=== PATIENT | male | born 1935 | race Two or more races ===

== ENCOUNTER 2017-07-06 07:48 | Outpatient (CLI) | payer OTHER | END 2017-07-06 10:30 | disposition home or self-care (01) | LOC: SONOGRAMA 07:48 | DX: N40.0 Benign prostatic hyperplasia without lower urinary tract symptoms (principal); R31.9 Hematuria, unspecified ==

== ENCOUNTER 2023-03-21 09:20 | Emergency (ER) | payer OTHER ==
[~2023-03-21] VITALS: Ht 165.1 cm; Wt 76.2 kg
[2023-03-21] MEDS ORDERED: SIMVASTATIN20 MG PO (09:38)
[2023-03-21] MEDS ORDERED: PREDNISONE10 M2 PO (09:38)
[2023-03-21 10:26] LABS: HEMATOCRIT 38.6 % (39.0-48.0); HEMOGLOBIN 13.2 g/dL (13-16.00); MEAN CELL VOLUME 86.8 fL (80.0-100.00); MEAN CORPUSCULAR HEMOGLOBIN 29.7 pg (27.00-32.0); MEAN CORPUSCULAR HGB CONC 34.2 g/dl (32.0-36.0); PLATELET COUNT 239 K/uL (150-450); RED BLOOD COUNT 4.45 M/uL (4.00-6.00); RED CELL DISTRIBUTION WIDTH 15.2 % (11.5-14.5)
[2023-03-21 10:59] LABS: CALCIUM 9.3 mg/dL (8.5-10.1); CREATININE SERUM 2.07 mg/dL (0.70-1.30); GFR 30.6; POTASSIUM 4.2 mEq/L (3.5-5.1)
[2023-03-21 11:52] LABS: ABG PH 7.432 (7.35-7.45); ABG pCO2 32.8 mmHg (35-45); BASE EXCESS -1.9 mmol/l; BICARBONATE 21.4 mmol/l (23-25); SaO2 96.2 %
== END 2023-03-21 12:09 | disposition home or self-care (01) ==
LOC: ER 09:21
PROVIDERS: General Practice
DX: J44.1 Chronic obstructive pulmonary disease with (acute) exacerbation (principal); J45.901 Unspecified asthma with (acute) exacerbation; E03.9 Hypothyroidism, unspecified; I10 Essential (primary) hypertension
CPT/HCPCS: 36415; 71046; 82803; 94640; 96365; 99285; J2930; J3475

== ENCOUNTER 2023-03-30 09:06 | Inpatient (IN) | payer OTHER ==
[~2023-03-30] VITALS: Ht 165.1 cm; Wt 76.2 kg
[~2023-03-30 09:06] MED LIST: PREDNISONE10 M2 PO; SIMVASTATIN20 MG PO
[2023-03-30 11:10] LABS: HEMATOCRIT 39.7 % (39.0-48.0); HEMOGLOBIN 13.4 g/dL (13-16.00); MEAN CELL VOLUME 86.6 fL (80.0-100.00); MEAN CORPUSCULAR HEMOGLOBIN 29.3 pg (27.00-32.0); MEAN CORPUSCULAR HGB CONC 33.9 g/dl (32.0-36.0); PLATELET COUNT 249 K/uL (150-450); RED BLOOD COUNT 4.58 M/uL (4.00-6.00); RED CELL DISTRIBUTION WIDTH 15.3 % (11.5-14.5)
[2023-03-30 11:30] LABS: ALBUMIN 3.5 gm/dL (3.4-5.0); BILIRUBIN TOTAL 0.55 mg/dL (0.3-1.2); CALCIUM 9.1 mg/dL (8.5-10.1); CREATININE SERUM 1.99 mg/dL (0.70-1.30); GFR 32.02; GLOBULINA 3.3 G/DL (2.4-3.5); POTASSIUM 4.29 mEq/L (3.5-5.1); TOTAL PROTEIN 6.8 gm/dL (6.4-8.2)
[2023-03-30 11:38] LABS: ABG PH 7.425 (7.35-7.45); ABG PO2 86.2 mmHg (80-100); ABG pCO2 31.6 mmHg (35-45); BICARBONATE 20.2 mmol/l (23-25); SaO2 96.7 %; Tco2 21.2 mmol/l
[2023-03-30 11:39] LABS: allen test SATISFACTORY; o2 21 %; puncture site RADIAL RIGHT
[2023-03-31 07:51] LABS: HEMATOCRIT 37.5 % (39.0-48.0); HEMOGLOBIN 12.2 g/dL (13-16.00); MEAN CELL VOLUME 87.9 fL (80.0-100.00); MEAN CORPUSCULAR HEMOGLOBIN 28.6 pg (27.00-32.0); MEAN CORPUSCULAR HGB CONC 32.5 g/dl (32.0-36.0); PLATELET COUNT 223 K/uL (150-450); RED BLOOD COUNT 4.27 M/uL (4.00-6.00)
[2023-03-31 08:34] LABS: ALBUMIN 3.2 gm/dL (3.4-5.0); BILIRUBIN TOTAL 0.46 mg/dL (0.3-1.2); CALCIUM 8.9 mg/dL (8.5-10.1); CREATININE SERUM 2.25 mg/dL (0.70-1.30); GFR 27.79; GLOBULINA 2.6 G/DL (2.4-3.5); POTASSIUM 5.59 mEq/L (3.5-5.1); TOTAL PROTEIN 5.8 gm/dL (6.4-8.2)
[2023-03-31 08:39] LABS: C-REACTIVE PROTEIN 0.48 MG/DL (0.00-0.29)
[2023-03-31 08:40] LABS: TSH 0.037 uIU/mL (0.358-3.74)
[2023-04-01 08:52] LABS: HEMATOCRIT 38.4 % (39.0-48.0); HEMOGLOBIN 12.7 g/dL (13-16.00); PLATELET COUNT 252 K/uL (150-450); RED BLOOD COUNT 4.36 M/uL (4.00-6.00); RED CELL DISTRIBUTION WIDTH 14.9 % (11.5-14.5)
[2023-04-01 09:27] LABS: CALCIUM 8.6 mg/dL (8.5-10.1); GFR 31.84; MAGNESIUM 2.1 mg/dL (1.8-2.4); PHOSPHOROUS 3.3 mg/dL (2.5-4.9); POTASSIUM 4.3 mEq/L (3.5-5.1)
[2023-04-02 13:43] LABS: HEMOGLOBIN 13.6 g/dL (13-16.00); MEAN CELL VOLUME 88.4 fL (80.0-100.00); MEAN CORPUSCULAR HEMOGLOBIN 28.6 pg (27.00-32.0); MEAN CORPUSCULAR HGB CONC 32.4 g/dl (32.0-36.0); PLATELET COUNT 282 K/uL (150-450); RED BLOOD COUNT 4.75 M/uL (4.00-6.00); RED CELL DISTRIBUTION WIDTH 15.6 % (11.5-14.5)
[2023-04-02 14:16] LABS: CALCIUM 8.8 mg/dL (8.5-10.1); CREATININE SERUM 1.98 mg/dL (0.70-1.30); GFR 32.21; MAGNESIUM 2.2 mg/dL (1.8-2.4); PHOSPHOROUS 2.3 mg/dL (2.5-4.9); POTASSIUM 4.03 mEq/L (3.5-5.1)
[2023-04-03 11:42] LABS: HEMATOCRIT 41.9 % (39.0-48.0); HEMOGLOBIN 13.4 g/dL (13-16.00); MEAN CELL VOLUME 89.6 fL (80.0-100.00); MEAN CORPUSCULAR HEMOGLOBIN 28.6 pg (27.00-32.0); MEAN CORPUSCULAR HGB CONC 31.9 g/dl (32.0-36.0); PLATELET COUNT 247 K/uL (150-450); RED BLOOD COUNT 4.68 M/uL (4.00-6.00); RED CELL DISTRIBUTION WIDTH 15.3 % (11.5-14.5)
[2023-04-03 12:03] LABS: CALCIUM 8.5 mg/dL (8.5-10.1); CREATININE SERUM 1.94 mg/dL (0.70-1.30); GFR 32.98; MAGNESIUM 2.3 mg/dL (1.8-2.4); PHOSPHOROUS 3.1 mg/dL (2.5-4.9); POTASSIUM 4.02 mEq/L (3.5-5.1)
[2023-04-05 04:53] LABS: CREATININE SERUM 1.97 mg/dL (0.70-1.30); GFR 32.4; HEMATOCRIT 34.2 % (39.0-48.0); HEMOGLOBIN 11.6 g/dL (13-16.00); MAGNESIUM 2.1 mg/dL (1.8-2.4); MEAN CELL VOLUME 86.7 fL (80.0-100.00); MEAN CORPUSCULAR HEMOGLOBIN 29.3 pg (27.00-32.0); MEAN CORPUSCULAR HGB CONC 33.8 g/dl (32.0-36.0); PHOSPHOROUS 2.5 mg/dL (2.5-4.9); PLATELET COUNT 195 K/uL (150-450); POTASSIUM 5.05 mEq/L (3.5-5.1); RED BLOOD COUNT 3.95 M/uL (4.00-6.00)
[2023-04-06] MEDS ORDERED: LEVOTHYROXINE88 MCG PO (12:50)
[2023-04-06] MEDS ORDERED: HYDRODIURIL12.5 MG PO (12:50)
[2023-04-06] MEDS ORDERED: SIMVASTATIN20 MG PO (12:50)
[2023-04-06] MEDS ORDERED: ATACAND16 MG PO (12:50)
[2023-04-06] MEDS ORDERED: prednisone PO (12:50)
== END 2023-04-06 15:04 | disposition home or self-care (01) | DRG 192 ==
LOC: ER 09:06 → MEDI 15:21 → SEC-K 15:21 → MEDI 16:16
PROVIDERS: General Practice; ADMIT Internal Medicine Geriatric Medicine; ATTEND Internal Medicine Geriatric Medicine
PROC: BW24ZZZ Computerized Tomography (CT Scan) of Chest and Abdomen (ICD-10-PCS; principal; 2023-03-30)
PROC: B24BZZZ Ultrasonography of Heart with Aorta (ICD-10-PCS; 2023-04-01)
DX: J44.1 Chronic obstructive pulmonary disease with (acute) exacerbation (principal); J20.9 Acute bronchitis, unspecified; I12.9 Hypertensive chronic kidney disease with stage 1 through stage 4 chronic kidney disease, or unspecified chronic kidney disease; E03.9 Hypothyroidism, unspecified; N18.30 Chronic kidney disease, stage 3 unspecified; Z20.822 Contact with and (suspected) exposure to COVID-19

== ENCOUNTER 2024-06-02 22:40 | Inpatient (IN) | payer OTHER ==
[~2024-06-02] VITALS: Ht 167.6 cm; Wt 81.6 kg
[~2024-06-02 22:40] MED LIST changes: +ATACAND16 MG PO; +HYDRODIURIL12.5 MG PO; +LEVOTHYROXINE88 MCG PO; +prednisone PO
[2024-06-03] MEDS ORDERED: IPRATROPIUM/ALBUTEROL SULFATE 3 ML AMPUL.NEB IH SCH (01:51)
[2024-06-03] MEDS ORDERED: METHYLPREDNISOLONE SOD SUCC 125 MG VIAL IV STA (01:52)
[2024-06-03] MEDS ORDERED: FUROsemide 40 MG TABLET PO STA (02:08)
[2024-06-03] MEDS ORDERED: KETOROLAC TROMETHAMINE 30 MG VIAL IV STA (02:37)
[2024-06-03 02:58] LABS: HEMATOCRIT 39.7 % (39.0-48.0); HEMOGLOBIN 12.9 g/dL (13-16.00); MEAN CELL VOLUME 88.4 fL (80.0-100.00); MEAN CORPUSCULAR HEMOGLOBIN 28.7 pg (27.00-32.0); MEAN CORPUSCULAR HGB CONC 32.5 g/dl (32.0-36.0); PLATELET COUNT 229 K/uL (150-450); RED BLOOD COUNT 4.49 M/uL (4.00-6.00); RED CELL DISTRIBUTION WIDTH 14.6 % (11.5-14.5)
[2024-06-03 03:00] LABS: ERYTHROCYTE SEDIMENTATION RATE 8 mm/hr
[2024-06-03 03:23] LABS: ALBUMIN 3.6 gm/dL (3.4-5.0); BILIRUBIN TOTAL 0.73 mg/dL (0.3-1.2); GFR 26.57; GLOBULINA 2.7 G/DL (2.4-3.5); POTASSIUM 4.29 mEq/L (3.5-5.1); TOTAL PROTEIN 6.3 gm/dL (6.4-8.2)
[2024-06-03 03:28] LABS: CREATININE SERUM 2.33 mg/dL (0.70-1.30)
[2024-06-03 06:03] LABS: ABG PH 7.468 (7.35-7.45); ABG pCO2 33.1 mmHg (35-45)
[2024-06-03 06:04] LABS: BASE EXCESS 0.5 mmol/l; BICARBONATE 23.4 mmol/l (23-25); SaO2 97.2 %; Tco2 24.4 mmol/l; allen test SATISFACTORY; o2 21 %; puncture site RADIAL LEFT
[2024-06-03 08:20] LABS: URINE APPEARANCE Clear; URINE BILIRRUBIN Negative (NEGATIVE); URINE BLOOD Negative; URINE COLOR Yellow; URINE GLUCOSE Negative (NEGATIVE); URINE KETONE Negative (NEGATIVE); URINE LEUKOCYTE Negative; URINE NITRATE Negative; URINE PROTEIN Negative (NEGATIVE); URINE UROBILINOGEN 0.2 E.U./dl
[2024-06-03 08:24] LABS: URINE BACTERIA 8.5 uL (0.0-1933); URINE EPITHELIAL CELLS 1.5 uL (0.0-38.8)
[2024-06-03 09:22] LABS: URINE CAST 0.73 uL (0.0-1.40); URINE RBC 0.4 uL (0.0-20.8); URINE WBC 1.1 uL (0.0-23.2)
[2024-06-03] MEDS ORDERED: 0.9 % SODIUM CHLORIDE 1,000 ML IV SCH (10:00)
[2024-06-03] MEDS ORDERED: CEFTRIAXONE SODIUM 1,000 MG VIAL IV SCH (10:03)
[2024-06-03] MEDS ORDERED: METHYLPREDNISOLONE SOD SUCC 40 MG VIAL IV SCH (10:03)
[2024-06-03] MEDS ORDERED: DOXYCYCLINE HYCLATE 100MG IV SCH (10:03)
[2024-06-03] MEDS ORDERED: FAMOtidine 20 MG TABLET PO SCH (10:05)
[2024-06-03] MEDS ORDERED: HYDROCHLOROTHIAZIDE 12.5 MG CAPSULE PO SCH (10:11)
[2024-06-03] MEDS ORDERED: ENOXAPARIN SODIUM 30 MG/0.3 ML SYRINGE SUBCUTANEO SCH (10:12)
[2024-06-03] MEDS ORDERED: CANDESARTAN CILEXETIL 16 MG TABLET PO SCH (10:13)
[2024-06-03] MEDS ORDERED: BUDESONIDE 0.25 MG/2 ML AMPUL.NEB IH SCH (10:14)
[2024-06-03] MEDS ORDERED: hydrALAZINE HCL 20 MG VIAL IV PRN (10:15)
[2024-06-03] MEDS ORDERED: ALBUTEROL SULFATE 3 ML/2.5 MG AMPUL.NEB IH SCH (12:00)
[2024-06-03] MEDS ORDERED: BENZONATATE 100 MG CAPSULE PO SCH (13:00)
[2024-06-03 15:00] VITALS: BP 144/73; O2SAT 100
[2024-06-03] MEDS ORDERED: SIMVASTATIN 20 MG TABLET PO SCH (17:00)
[2024-06-03] MEDS ORDERED: LINEZOLID IN DEXTROSE 5% 300 ML IV SCH (21:00)
[2024-06-03] MEDS ORDERED: MONTELUKAST SODIUM 10 MG TABLET PO SCH (21:00)
[2024-06-03] MEDS ORDERED: POLYETHYLENE GLYCOL 3350 17 GM BLIST.PACK PO SCH (21:00)
[2024-06-04 02:45] VITALS: BP 150/74; O2SAT 99
[2024-06-04] MEDS ORDERED: LEVOTHYROXINE SODIUM 100 MCG TABLET PO SCH (06:00)
[2024-06-04 08:03] LABS: HEMATOCRIT 35.8 % (39.0-48.0); MEAN CELL VOLUME 87.2 fL (80.0-100.00); MEAN CORPUSCULAR HEMOGLOBIN 29.3 pg (27.00-32.0); MEAN CORPUSCULAR HGB CONC 33.6 g/dl (32.0-36.0); PLATELET COUNT 176 K/uL (150-450); RED BLOOD COUNT 4.11 M/uL (4.00-6.00)
[2024-06-04 08:49] LABS: ERYTHROCYTE SEDIMENTATION RATE 46 mm/hr
[2024-06-04 09:07] LABS: BILIRUBIN TOTAL 0.46 mg/dL (0.3-1.2); C-REACTIVE PROTEIN 17.3 MG/DL (0.00-0.29); CREATININE SERUM 2.34 mg/dL (0.70-1.30); GFR 26.44; GLOBULINA 2.7 G/DL (2.4-3.5); MAGNESIUM 2.2 mg/dL (1.8-2.4); PHOSPHOROUS 4.2 mg/dL (2.5-4.9); POTASSIUM 4.78 mEq/L (3.5-5.1); TOTAL PROTEIN 5.7 gm/dL (6.4-8.2); TSH 0.116 uIU/mL (0.358-3.74)
[2024-06-04 10:05] VITALS: BP 137/79; O2SAT 96
[2024-06-04 19:36] VITALS: BP 190/76
[2024-06-05 01:49] VITALS: BP 151/58; O2SAT 97
[2024-06-05 08:00] VITALS: BP 151/82; O2SAT 96
[2024-06-05] MEDS ORDERED: METHYLPREDNISOLONE SOD SUCC 40 MG VIAL IV SCH (09:00)
[2024-06-05 19:12] VITALS: BP 151/86
[2024-06-06 01:15] VITALS: BP 119/68; O2SAT 97
[2024-06-06 09:19] VITALS: BP 140/64; O2SAT 98
[2024-06-06 13:00] LABS: HEMATOCRIT 36.6 % (39.0-48.0); HEMOGLOBIN 12.1 g/dL (13-16.00); MEAN CELL VOLUME 87.7 fL (80.0-100.00); MEAN CORPUSCULAR HEMOGLOBIN 29.1 pg (27.00-32.0); MEAN CORPUSCULAR HGB CONC 33.1 g/dl (32.0-36.0); PLATELET COUNT 241 K/uL (150-450); RED BLOOD COUNT 4.17 M/uL (4.00-6.00); RED CELL DISTRIBUTION WIDTH 14.7 % (11.5-14.5)
[2024-06-06 13:34] LABS: CALCIUM 8.5 mg/dL (8.5-10.1); CREATININE SERUM 2.15 mg/dL (0.70-1.30); GFR 29.15; MAGNESIUM 2.1 mg/dL (1.8-2.4); PHOSPHOROUS 3.7 mg/dL (2.5-4.9); POTASSIUM 5.04 mEq/L (3.5-5.1)
[2024-06-06 13:35] LABS: C-REACTIVE PROTEIN 3.42 MG/DL (0.00-0.29)
[2024-06-06 18:24] VITALS: BP 146/84
[2024-06-07 01:58] VITALS: BP 160/51; O2SAT 95
[2024-06-07 08:05] VITALS: BP 148/69; O2SAT 98
[2024-06-07] MEDS ORDERED: PREDNISONE 10 MG TABLET PO SCH (09:00)
[2024-06-07] MEDS ORDERED: LACTOBACILLUS ACIDOPHILUS 1 CAP CAP PO SCH (17:00)
[2024-06-07 17:54] VITALS: BP 109/57
[2024-06-08 02:47] VITALS: BP 155/71; O2SAT 97
[2024-06-08 08:22] VITALS: BP 156/84; O2SAT 97
[2024-06-08 11:57] LABS: HEMOGLOBIN 11.5 g/dL (13-16.00); MEAN CELL VOLUME 88.4 fL (80.0-100.00); MEAN CORPUSCULAR HEMOGLOBIN 29.1 pg (27.00-32.0); RED BLOOD COUNT 3.96 M/uL (4.00-6.00); RED CELL DISTRIBUTION WIDTH 14.6 % (11.5-14.5)
[2024-06-08 12:06] LABS: PLATELET COUNT 130 K/uL (150-450)
[2024-06-08 20:29] VITALS: BP 148/93
[2024-06-09 02:56] VITALS: BP 144/80; O2SAT 97
[2024-06-09 06:25] LABS: HEMATOCRIT 35.2 % (39.0-48.0); MEAN CELL VOLUME 85.4 fL (80.0-100.00); MEAN CORPUSCULAR HEMOGLOBIN 29.2 pg (27.00-32.0); MEAN CORPUSCULAR HGB CONC 34.2 g/dl (32.0-36.0); PLATELET COUNT 168 K/uL (150-450); RED BLOOD COUNT 4.12 M/uL (4.00-6.00); RED CELL DISTRIBUTION WIDTH 14.4 % (11.5-14.5)
[2024-06-09] MEDS ORDERED: CHOLESTYRAMINE/ASPARTAME LIGHT 4 G/PKT PACKET PO SCH (09:00)
[2024-06-09 10:52] VITALS: BP 176/66; O2SAT 96
[2024-06-09] MEDS ORDERED: LINEZOLID600 MG PO (13:36)
[2024-06-10 00:08] LABS: GIARDIA LAMBLIA EIA Negative (Negative)
== END 2024-06-09 15:26 | disposition home or self-care (01) | DRG 603 ==
LOC: ER 22:42 → SEC-K 06-03 10:21 → MEDJ 06-03 10:21
PROVIDERS: Internal Medicine Infectious Disease; ADMIT Internal Medicine Geriatric Medicine; ATTEND Internal Medicine Geriatric Medicine
PROC: 02HV33Z Insertion of Infusion Device into Superior Vena Cava, Percutaneous Approach (ICD-10-PCS; principal; 2024-06-03)
DX: L03.113 Cellulitis of right upper limb (principal); A04.72 Enterocolitis due to Clostridium difficile, not specified as recurrent; I10 Essential (primary) hypertension; J44.9 Chronic obstructive pulmonary disease, unspecified; E03.9 Hypothyroidism, unspecified; I12.9 Hypertensive chronic kidney disease with stage 1 through stage 4 chronic kidney disease, or unspecified chronic kidney disease; N18.30 Chronic kidney disease, stage 3 unspecified

== ENCOUNTER 2024-08-09 11:35 | Inpatient (IN) | payer OTHER ==
[~2024-08-09] VITALS: Ht 177.8 cm; Wt 90.7 kg
[2024-08-09] VITALS (8 sets, daily range): BP systolic 143–200; BP diastolic 72–101; O2SAT 99–100
[~2024-08-09 11:35] MED LIST changes: +ALBUTEROL2.5 MG/3 M IH; +ALLERGY RELIEF10 MG; +ALLERGY RELIEF10 MG PO; +AMOX-CLAV 875-1 EACH PO; +ANTIFUNGAL113 GM TOP; +ATACAND HCT 161 EACH; +ATACAND HCT 161 EACH PO; +ATACAND32 MG; +ATACAND32 MG PO; +BENZONATATE100 MG; +BENZONATATE100 MG PO; +BENZONATATE200 M1 PO; +BUDEO.25 IH; +BUDESONIDE0.5 MG/2 M IH; +CANDESARTAN CIL16 MG; +CANDESARTAN-HC1 EACH; +CANDESARTAN-HC1 EACH PO; +CLINDAMYCIN HC300 MG PO; +CLOTRIMAZOLE15 GM TOP; +CLOTRIMAZOLE45 G1 TOP; +FAMOTIDINE20 MG PO; +HYDROCHLOROTH12.5 M1 PO; +HYDROCODONE-CH115 ML PO; +INTESTINEX680 M1 PO; +IPRATROPIU0.2 MG/1 M IH; +LEVALBUTER0.31 MG/3 IH; +LEVALBUTEROL TA15 GM IH; +LEVOTHYROXINE112 MCG PO; +LEVOTHYROXINE125 MCG PO; +LINEZOLID600 MG PO; +LORATADINE10 MG; +LORATADINE10 MG PO; +MEDROLPACK PO; +MILLIPRED5 MG; +MONTELUKAST SOD10 MG; +MONTELUKAST SOD10 MG PO; +MONTELUKAST SODI4 M1; +MUCINEX DM ER1 EACH PO; +MUCINEX600 MG PO; +OMEPRAZOLE20 M1 PO; +PANTOPRAZOLE SO40 MG PO; +PREDNISONE 5MG PO; +PREDNISONE10 M2; +PREDNISONE10 MG PO; +PREDNISONE20 M1; +PRELONE15 MG/5 ML PO; +PROAIR RESPICL90 MCG; +PROMETHAZINE W118 ML PO; +PROTONIX40 MG PO; +SIMVASTATIN5 MG; +SINGULAIR10 MG PO; +SYMBICORT 16010.2 GM; +SYMBICORT 16010.2 GM IH; +SYNTHROID100 MCG PO; +SYNTHROID50 MCG; +SYNTHROID50 MCG PO; +SYNTHROID88 MCG; +TESSALON PERLE100 MG PO; +TRAMADOL PO; +TRELEGY ELLIPT1 EAC1; +TRELEGY ELLIPT1 EAC1 IN; +TRELEGY ELLIPT1 EACH; +TUSSIN DM LIQU118 ML PO; +Tessalon Perles PO; +XOPENEX HFA15 GM IH; +XOPENEX0.63 MG/3 IH; +ZITHROMAX TRI-500 MG PO; +ZITHROMAX200 MG PO; +ZITHROMAX500 MG PO; +prednisone 20 mg PO; +zyvox PO
[2024-08-09 13:12] LABS: ABG PH 7.387 (7.35-7.45); ABG PO2 78.6 mmHg (80-100); ABG pCO2 36.8 mmHg (35-45); BASE EXCESS -2.8 mmol/l; BICARBONATE 21.6 mmol/l (23-25); SaO2 95.2 %; Tco2 22.8 mmol/l
[2024-08-09] MEDS ORDERED: LEVALBUTEROL HCL 1.25 MG/3 ML SOLUTION IH ONE (13:14)
[2024-08-09] MEDS ORDERED: LEVALBUTEROL HCL 1.25 MG/3 ML SOLUTION IH SCH (13:15)
[2024-08-09 13:50] LABS: HEMATOCRIT 37.6 % (39.0-48.0); HEMOGLOBIN 12.4 g/dL (13-16.00); MEAN CORPUSCULAR HEMOGLOBIN 28.3 pg (27.00-32.0); MEAN CORPUSCULAR HGB CONC 32.9 g/dl (32.0-36.0); PLATELET COUNT 314 K/uL (150-450); RED BLOOD COUNT 4.37 M/uL (4.00-6.00)
[2024-08-09 14:09] LABS: INR 1.01; PARTIAL THROMBOPLASTIN TIME 25.7 SECONDS (22.0-34.0)
[2024-08-09 14:27] LABS: ALBUMIN 3.9 gm/dL (3.4-5.0); BILIRUBIN TOTAL 0.66 mg/dL (0.3-1.2); CALCIUM 9.6 mg/dL (8.5-10.1); CREATININE SERUM 2.09 mg/dL (0.70-1.30); GFR 30.12; GLOBULINA 2.8 G/DL (2.4-3.5); POTASSIUM 4.69 mEq/L (3.5-5.1); TOTAL PROTEIN 6.7 gm/dL (6.4-8.2)
[2024-08-09 15:01] LABS: URINE APPEARANCE Clear; URINE BILIRRUBIN Negative (NEGATIVE); URINE BLOOD Large; URINE COLOR Yellow; URINE GLUCOSE Negative (NEGATIVE); URINE KETONE Negative (NEGATIVE); URINE LEUKOCYTE Negative; URINE NITRATE Negative; URINE PROTEIN Trace (NEGATIVE); URINE UROBILINOGEN 0.2 E.U./dl
[2024-08-09 15:04] LABS: URINE BACTERIA 61.1 uL (0.0-1933); URINE CAST 2.65 uL (0.0-1.40); URINE RBC 576.6 uL (0.0-20.8); URINE WBC 6.3 uL (0.0-23.2)
[2024-08-09] MEDS ORDERED: METHYLPREDNISOLONE SOD SUCC 125 MG VIAL ONE (15:24)
[2024-08-09] MEDS ORDERED: FUROsemide 20 MG/2 ML VIAL IV SCH (15:57)
[2024-08-09] MEDS ORDERED: CEFTRIAXONE SODIUM 1,000 MG VIAL IV STA (15:58)
[2024-08-09] MEDS ORDERED: DOXYCYCLINE HYCLATE 100MG IV SCH ×2 (15:59→17:00)
[2024-08-09] MEDS ORDERED: hydrALAZINE HCL 20 MG VIAL IV PRN ×2 (16:00→19:56)
[2024-08-09] MEDS ORDERED: BUDESONIDE 0.25 MG/2 ML AMPUL.NEB IH SCH (16:00)
[2024-08-09 16:01] LABS: allen test SATISFACTORY; o2 21 %; puncture site RADIAL RIGHT
[2024-08-09] MEDS ORDERED: METHYLPREDNISOLONE SOD SUCC 125 MG VIAL IV ONE (16:15)
[2024-08-09] MEDS ORDERED: hydrALAZINE HCL 20 MG VIAL ONE ×2 (16:17→20:29)
[2024-08-09] MEDS ORDERED: BENZONATATE 100 MG CAPSULE PO ONE (16:17)
[2024-08-09] MEDS ORDERED: FUROsemide 20 MG/2 ML VIAL ONE (16:17)
[2024-08-09] MEDS ORDERED: METHYLPREDNISOLONE SOD SUCC 40 MG VIAL ONE ×2 (16:18→22:48)
[2024-08-09] MEDS ORDERED: BUDESONIDE 0.25 MG/2 ML AMPUL.NEB IH ONE ×2 (16:18→20:30)
[2024-08-09] MEDS ORDERED: ENOXAPARIN SODIUM 40 MG/0.4 ML SYRINGE SUBCUTANEO ONE (16:18)
[2024-08-09] MEDS ORDERED: CEFTRIAXONE SODIUM 1,000 MG VIAL ONE (16:18)
[2024-08-09] MEDS ORDERED: LACTOBACILLUS ACIDOPHILUS 1 CAP CAP PO ONE (16:18)
[2024-08-09] MEDS ORDERED: MONTELUKAST SODIUM 10 MG TABLET PO ONE (16:18)
[2024-08-09] MEDS ORDERED: FAMOTIDINE/PF 20 MG/2 ML VIAL ONE (16:18)
[2024-08-09] MEDS ORDERED: LEVALBUTEROL HCL 0.63 MG/3 ML SOLUTION IH SCH (17:00)
[2024-08-09] MEDS ORDERED: ENOXAPARIN SODIUM 30 MG/0.3 ML SYRINGE SUBCUTANEO SCH (17:00)
[2024-08-09] MEDS ORDERED: LACTOBACILLUS ACIDOPHILUS 1 CAP CAP PO SCH (17:00)
[2024-08-09] MEDS ORDERED: BENZONATATE 100 MG CAPSULE PO SCH (17:00)
[2024-08-09] MEDS ORDERED: IPRATROPIUM BROMIDE 0.5 MG/2.5 ML AMPUL.NEB IH ONE ×2 (17:27→17:30)
[2024-08-09] MEDS ORDERED: LEVALBUTEROL HCL 0.63 MG/3 ML SOLUTION IH ONE ×3 (17:28→22:49)
[2024-08-09] MEDS ORDERED: CANDESARTAN CILEXETIL 16 MG TABLET PO ONE (17:30)
[2024-08-09] MEDS ORDERED: METHYLPREDNISOLONE SOD SUCC 40 MG VIAL IV SCH (18:00)
[2024-08-09] MEDS ORDERED: FAMOTIDINE/PF 20 MG/2 ML VIAL IV SCH (21:00)
[2024-08-09] MEDS ORDERED: MONTELUKAST SODIUM 10 MG TABLET PO SCH (21:00)
[2024-08-10] VITALS (9 sets, daily range): BP systolic 149–164; BP diastolic 70–80; O2SAT 96–100
[2024-08-10] MEDS ORDERED: LEVOTHYROXINE SODIUM 100 MCG TABLET PO SCH (06:00)
[2024-08-10 06:59] LABS: HEMOGLOBIN 11.9 g/dL (13-16.00); MEAN CELL VOLUME 85.3 fL (80.0-100.00); MEAN CORPUSCULAR HEMOGLOBIN 28.1 pg (27.00-32.0); MEAN CORPUSCULAR HGB CONC 32.9 g/dl (32.0-36.0); PLATELET COUNT 278 K/uL (150-450); RED BLOOD COUNT 4.23 M/uL (4.00-6.00); RED CELL DISTRIBUTION WIDTH 14.6 % (11.5-14.5)
[2024-08-10 07:12] LABS: ERYTHROCYTE SEDIMENTATION RATE 45 mm/hr
[2024-08-10 07:17] LABS: ALBUMIN 3.4 gm/dL (3.4-5.0); BILIRUBIN TOTAL 0.54 mg/dL (0.3-1.2); CALCIUM 9.1 mg/dL (8.5-10.1); CREATININE SERUM 2.17 mg/dL (0.70-1.30); GFR 28.84; MAGNESIUM 1.6 mg/dL (1.8-2.4); PHOSPHOROUS 3.6 mg/dL (2.5-4.9); POTASSIUM 4.46 mEq/L (3.5-5.1); TOTAL PROTEIN 6.4 gm/dL (6.4-8.2); TSH 1.68 uIU/mL (0.358-3.74)
[2024-08-10 07:21] LABS: C-REACTIVE PROTEIN 0.75 MG/DL (0.00-0.29)
[2024-08-10] MEDS ORDERED: FAMOTIDINE/PF 20 MG/2 ML VIAL IV SCH (09:00)
[2024-08-10] MEDS ORDERED: CANDESARTAN CILEXETIL 16 MG TABLET PO SCH (09:00)
[2024-08-10] MEDS ORDERED: MAGNESIUM SULFATE IN WATER 50 ML IV NR (10:00)
[2024-08-10] MEDS ORDERED: DOXYCYCLINE HYCLATE 100MG IV ONE (15:33)
[2024-08-10] MEDS ORDERED: CEFTRIAXONE SODIUM 1,000 MG VIAL IV SCH (17:00)
[2024-08-10] MEDS ORDERED: SIMVASTATIN 20 MG TABLET PO SCH (17:00)
[2024-08-10] MEDS ORDERED: DOXYCYCLINE HYCLATE 100 MG CAPSULE PO SCH (17:00)
[2024-08-11 02:09] VITALS: O2SAT 95
[2024-08-11 02:36] VITALS: BP 145/65
[2024-08-11] MEDS ORDERED: DOXYCYCLINE HYCLATE 100 MG CAPSULE PO SCH ×2 (05:00→09:00)
[2024-08-11 09:24] VITALS: BP 179/83; O2SAT 97
[2024-08-11] MEDS ORDERED: CEFTRIAXONE SODIUM 1,000 MG VIAL IV SCH (17:00)
[2024-08-11 17:10] VITALS: O2SAT 96
[2024-08-11 17:39] VITALS: BP 170/76
[2024-08-11] MEDS ORDERED: METHYLPREDNISOLONE SOD SUCC 40 MG VIAL IV SCH (18:00)
[2024-08-11 21:06] VITALS: O2SAT 96
[2024-08-12 00:32] VITALS: O2SAT 96
[2024-08-12 02:37] VITALS: BP 164/69
[2024-08-12 08:43] LABS: MYCOPLASMA PNEUMONIAE IGM NON REACTIVE (NO REACTIVE)
[2024-08-12] MEDS ORDERED: CANDESARTAN CILEXETIL 32 MG TABLET PO SCH (09:00)
[2024-08-12 09:21] VITALS: O2SAT 98
[2024-08-12 09:41] VITALS: BP 149/68; O2SAT 97
[2024-08-12] MEDS ORDERED: METHYLPREDNISOLONE SOD SUCC 40 MG VIAL IV SCH (13:00)
[2024-08-12 17:05] VITALS: BP 144/65
[2024-08-12] MEDS ORDERED: POLYETHYLENE GLYCOL 3350 17 GM BLIST.PACK PO SCH (21:00)
[2024-08-13 02:32] VITALS: BP 144/66
[2024-08-13 08:36] VITALS: BP 161/88
[2024-08-13 17:40] VITALS: BP 103/70; O2SAT 99
[2024-08-14 03:36] VITALS: BP 133/54
[2024-08-14] MEDS ORDERED: METHYLPREDNISOLONE SOD SUCC 40 MG VIAL IV SCH (09:00)
[2024-08-14 09:09] VITALS: BP 161/69
[2024-08-14 19:05] VITALS: BP 146/78; O2SAT 95
[2024-08-15 03:17] VITALS: BP 136/67
[2024-08-15 07:53] LABS: BILIRUBIN TOTAL 0.33 mg/dL (0.3-1.2); CALCIUM 8.4 mg/dL (8.5-10.1); CREATININE SERUM 2.09 mg/dL (0.70-1.30); GFR 30.12; GLOBULINA 2.4 G/DL (2.4-3.5); MAGNESIUM 2.5 mg/dL (1.8-2.4); POTASSIUM 5.1 mEq/L (3.5-5.1); TOTAL PROTEIN 5.4 gm/dL (6.4-8.2)
[2024-08-15 09:00] VITALS: BP 155/68; O2SAT 99
[2024-08-15] MEDS ORDERED: LEVALBUTER0.31 MG/3 IH (12:50)
[2024-08-15] MEDS ORDERED: PREDNISONE 5MG PO (12:50)
[2024-08-15] MEDS ORDERED: SIMVASTATIN20 MG PO (12:50)
[2024-08-15] MEDS ORDERED: BENZONATATE100 MG PO (12:50)
[2024-08-15] MEDS ORDERED: MONTELUKAST SOD10 MG PO (12:50)
[2024-08-15] MEDS ORDERED: BUDESONIDE0.5 MG/2 M IH (12:50)
[2024-08-15] MEDS ORDERED: ATACAND32 MG PO (12:50)
[2024-08-15] MEDS ORDERED: SYNTHROID100 MCG PO (12:50)
== END 2024-08-15 13:44 | disposition home or self-care (01) | DRG 191 ==
LOC: ER 11:38 → MEDJ 16:16 → SEC-K 16:16 → EDBD 16:16 → MEDJ 08-10 03:59
PROVIDERS: Emergency Medicine; Internal Medicine; Internal Medicine Infectious Disease; ADMIT Internal Medicine Geriatric Medicine; ATTEND Internal Medicine Geriatric Medicine
PROC: 4A12X4Z Monitoring of Cardiac Electrical Activity, External Approach (ICD-10-PCS; principal; 2024-08-10)
PROC: 3E0F7GC Introduction of Other Therapeutic Substance into Respiratory Tract, Via Natural or Artificial Opening (ICD-10-PCS; 2024-08-10)
PROC: 02HV33Z Insertion of Infusion Device into Superior Vena Cava, Percutaneous Approach (ICD-10-PCS; 2024-08-10)
DX: J44.1 Chronic obstructive pulmonary disease with (acute) exacerbation (principal); J45.51 Severe persistent asthma with (acute) exacerbation; N28.9 Disorder of kidney and ureter, unspecified; R60.1 Generalized edema; I12.9 Hypertensive chronic kidney disease with stage 1 through stage 4 chronic kidney disease, or unspecified chronic kidney disease; N18.9 Chronic kidney disease, unspecified; E03.9 Hypothyroidism, unspecified; Z87.891 Personal history of nicotine dependence

== ENCOUNTER 2024-08-26 18:28 | Inpatient (IN) | payer OTHER ==
[~2024-08-26] VITALS: Ht 157.5 cm; Wt 80.7 kg
--- NOTE | 2024-08-26 18:33 | NUR ---
PACIENTE CON HX. DE ASMA REFIERE TOS Y FALTA DE AIRE DESDE HACE 1 SEMANA. AL [id number] DEL TRIAGE PACIENTE CON WHEEZES AUDIBLES.
[2024-08-26] MEDS ORDERED: METHYLPREDNISOLONE SOD SUCC 125 MG VIAL IV ONE (19:15)
[2024-08-26] MEDS ORDERED: LEVALBUTEROL HCL 1.25 MG/3 ML SOLUTION IH SCH ×2 (19:15→22:40)
[2024-08-26] MEDS ORDERED: IPRATROPIUM BROMIDE 0.5 MG/2.5 ML AMPUL.NEB IH SCH ×2 (19:15→22:40)
[2024-08-26] MEDS ORDERED: GUAIFENESIN/DEXTROMETHORPHAN 100MG/10ML BLIST.PACK PO ONE ×2 (19:15→20:17)
[2024-08-26 19:29] LABS: ABG PH 7.412 (7.35-7.45); ABG PO2 80.4 mmHg (80-100); ABG pCO2 34.5 mmHg (35-45); BASE EXCESS -2.3 mmol/l; BICARBONATE 21.5 mmol/l (23-25); SaO2 95.8 %; Tco2 22.5 mmol/l
[2024-08-26] MEDS ORDERED: IPRATROPIUM BROMIDE 0.5 MG/2.5 ML AMPUL.NEB IH ONE (19:33)
[2024-08-26] MEDS ORDERED: LEVALBUTEROL HCL 1.25 MG/3 ML SOLUTION IH ONE (19:33)
[2024-08-26] MEDS ORDERED: METHYLPREDNISOLONE SOD SUCC 125 MG VIAL ONE (20:17)
[2024-08-26 20:46] LABS: HEMATOCRIT 34.6 % (39.0-48.0); HEMOGLOBIN 11.4 g/dL (13-16.00); MEAN CELL VOLUME 84.4 fL (80.0-100.00); MEAN CORPUSCULAR HEMOGLOBIN 27.9 pg (27.00-32.0); PLATELET COUNT 193 K/uL (150-450); RED CELL DISTRIBUTION WIDTH 15.5 % (11.5-14.5)
--- NOTE | 2024-08-26 20:48 | NUR ---
PTE ALERTA Y ORIENTADO X3 ES EVALUADO POR EL DR. AL. SE ORIENTA SOBRE TRATAMIENTO, VERBALIZA ENTENDER. SE CANALIZA, COLECTAN MUESTAR DE LAB Y SE ADMINISTAR MEDICAMENTO GISEL ORDEN MEDICA BAJO MEDIDAS ASEPTICAS. SE REALZIA EKG Y SE NOTIFCA CHEST PORTABLE. PEROSNLA DE TERAPIAS REALZIAN AGB Y ADMINISTRAN TERAPIAS.
[2024-08-26 21:11] LABS: ALBUMIN 3.3 gm/dL (3.4-5.0); BILIRUBIN TOTAL 0.53 mg/dL (0.3-1.2); CALCIUM 9.3 mg/dL (8.5-10.1); CREATININE SERUM 2.45 mg/dL (0.70-1.30); GFR 25.07; GLOBULINA 3.3 G/DL (2.4-3.5); POTASSIUM 4.34 mEq/L (3.5-5.1); TOTAL PROTEIN 6.6 gm/dL (6.4-8.2)
[2024-08-26 22:42] LABS: allen test SATISFACTORY; o2 21 %; puncture site RADIAL LEFT
[2024-08-26] MEDS ORDERED: AZITHROMYCIN 500 MG in DEXTROSE 5 % IN WATER 250 ML IV SCH (22:43)
[2024-08-26] MEDS ORDERED: CEFTRIAXONE SODIUM 2,000 MG in 0.9 % SODIUM CHLORIDE 100 ML IV SCH (22:43)
[2024-08-26] MEDS ORDERED: 0.9 % SODIUM CHLORIDE 1,000 ML IV SCH (22:45)
[2024-08-26] MEDS ORDERED: ACETAMINOPHEN 500 MG GEL..CAP PO PRN (22:45)
[2024-08-26 23:00] VITALS: BP 124/61; O2SAT 96
[2024-08-26] MEDS ORDERED: hydrALAZINE HCL 20 MG VIAL IV PRN (23:15)
[2024-08-27] MEDS ORDERED: METHYLPREDNISOLONE SOD SUCC 40 MG VIAL IV SCH (01:00)
[2024-08-27] MEDS ORDERED: GUAIFEN/DEXTROMETHORPHAN/PE 10 ML BLIST.PACK PO SCH (01:00)
[2024-08-27] MEDS ORDERED: METHYLPREDNISOLONE SOD SUCC 40 MG VIAL ONE (02:23)
[2024-08-27] MEDS ORDERED: GUAIFEN/DEXTROMETHORPHAN/PE 10 ML BLIST.PACK PO ONE (02:23)
[2024-08-27] MEDS ORDERED: AZITHROMYCIN 500 MG VIAL IV ONE ×2 (02:23→19:13)
[2024-08-27] MEDS ORDERED: CEFTRIAXONE SODIUM 2,000 MG VIAL ONE (02:23)
[2024-08-27 03:00] VITALS: BP 149/63
[2024-08-27 04:45] LABS: PARTIAL THROMBOPLASTIN TIME 24.1 SECONDS (22.0-34.0); PROTHROMBIN TIME 10.9 SECONDS (9.0-11.5)
[2024-08-27] MEDS ORDERED: LEVOTHYROXINE SODIUM 100 MCG TABLET PO SCH (06:00)
[2024-08-27 08:21] VITALS: BP 165/74
[2024-08-27] MEDS ORDERED: ENOXAPARIN SODIUM 40 MG/0.4 ML SYRINGE SUBCUTANEO SCH (09:00)
[2024-08-27] MEDS ORDERED: CANDESARTAN CILEXETIL 32 MG TABLET PO SCH (09:00)
[2024-08-27] MEDS ORDERED: FAMOTIDINE/PF 20 MG in 0.9 % SODIUM CHLORIDE 8 ML IV PUSH SCH (09:00)
[2024-08-27] MEDS ORDERED: ENOXAPARIN SODIUM 30 MG/0.3 ML SYRINGE SUBCUTANEO SCH (09:00)
[2024-08-27 10:38] LABS: URINE APPEARANCE Clear; URINE BILIRRUBIN Negative (NEGATIVE); URINE BLOOD Negative; URINE COLOR Yellow; URINE GLUCOSE Negative (NEGATIVE); URINE KETONE Negative (NEGATIVE); URINE LEUKOCYTE Negative; URINE NITRATE Negative; URINE PROTEIN Trace (NEGATIVE); URINE UROBILINOGEN 0.2 E.U./dl
[2024-08-27 10:41] LABS: URINE EPITHELIAL CELLS 4.5 uL (0.0-38.8); URINE WBC 18.8 uL (0.0-23.2)
[2024-08-27 10:47] LABS: URINE CAST 0.29 uL (0.0-1.40)
[2024-08-27] MEDS ORDERED: SIMVASTATIN 20 MG TABLET PO SCH (17:00)
[2024-08-27 17:47] VITALS: BP 184/71; O2SAT 97
[2024-08-27] MEDS ORDERED: BENZONATATE 100 MG CAPSULE PO SCH (18:07)
[2024-08-27] MEDS ORDERED: BENZONATATE 200 MG CAPSULE PO ONE (18:28)
[2024-08-27] MEDS ORDERED: FLUTICASONE PROPIONATE 50 MCG SPRAY NASAL SCH (21:00)
[2024-08-27] MEDS ORDERED: MONTELUKAST SODIUM 10 MG TABLET PO SCH (21:00)
[2024-08-27] MEDS ORDERED: AZITHROMYCIN 500 MG VIAL IV SCH (21:00)
[2024-08-27] MEDS ORDERED: LORATADINE 10 MG TABLET PO SCH (21:00)
[2024-08-28 02:06] VITALS: BP 135/60
[2024-08-28 08:07] LABS: CALCIUM 8.7 mg/dL (8.5-10.1); CREATININE SERUM 2.19 mg/dL (0.70-1.30); GFR 28.54; MAGNESIUM 2.1 mg/dL (1.8-2.4); PHOSPHOROUS 3.6 mg/dL (2.5-4.9); POTASSIUM 4.41 mEq/L (3.5-5.1)
[2024-08-28 08:19] LABS: HEMATOCRIT 30.5 % (39.0-48.0); HEMOGLOBIN 10.4 g/dL (13-16.00); MEAN CELL VOLUME 83.9 fL (80.0-100.00); MEAN CORPUSCULAR HEMOGLOBIN 28.5 pg (27.00-32.0); PLATELET COUNT 186 K/uL (150-450); RED BLOOD COUNT 3.63 M/uL (4.00-6.00); RED CELL DISTRIBUTION WIDTH 14.9 % (11.5-14.5)
[2024-08-28 08:47] LABS: TSH 0.079 uIU/mL (0.358-3.74)
[2024-08-28 09:29] VITALS: BP 178/69; O2SAT 96
[2024-08-28] MEDS ORDERED: METHYLPREDNISOLONE SOD SUCC 40 MG VIAL IV SCH (17:00)
[2024-08-28 17:51] VITALS: BP 159/60; O2SAT 96
[2024-08-28] MEDS ORDERED: FLUTICASONE PROPIONATE 50 MCG SPRAY NASAL SCH (21:00)
[2024-08-29 02:59] VITALS: BP 143/67
[2024-08-29 09:47] VITALS: BP 153/62
[2024-08-29] MEDS ORDERED: AMPICILLIN SODIUM/SULBACTAM NA 3,000 MG VIAL IV SCH (17:00)
[2024-08-29 18:35] VITALS: BP 160/68
[2024-08-30 01:36] VITALS: BP 1114/60; O2SAT 96
[2024-08-30 05:31] LABS: URINE APPEARANCE CLEAR; URINE BILIRRUBIN NEGATIVE (NEGATIVE); URINE BLOOD NEGATIVE; URINE COLOR YELLOW; URINE GLUCOSE NEGATIVE (NEGATIVE); URINE KETONE NEGATIVE (NEGATIVE)
[2024-08-30 05:32] LABS: URINE BACTERIA 1.2 uL (0.0-1933); URINE EPITHELIAL CELLS 2.3 uL (0.0-38.8); URINE LEUKOCYTE NEGATIVE; URINE NITRATE NEGATIVE; URINE PROTEIN NEGATIVE (NEGATIVE); URINE RBC 0.1 uL (0.0-20.8); URINE UROBILINOGEN 0.2 E.U./dl; URINE WBC 4.1 uL (0.0-23.2)
[2024-08-30 05:33] LABS: URINE CAST 0.29 uL (0.0-1.40)
[2024-08-30] MEDS ORDERED: DEXTROSE 50 % IN WATER 0.5 G/ML DISP.SYRIN IV PRN (07:00)
[2024-08-30] MEDS ORDERED: INSULIN LISPRO 1,000 UNIT/10 ML UNITS SUBCUTANEO PRN (07:00)
[2024-08-30 08:59] VITALS: BP 144/69
[2024-08-30 16:56] VITALS: BP 160/81; O2SAT 99
[2024-08-30] MEDS ORDERED: METHYLPREDNISOLONE SOD SUCC 40 MG VIAL IV SCH (21:00)
[2024-08-31 01:36] VITALS: BP 175/74
[2024-08-31 06:11] LABS: HEMATOCRIT 31.5 % (39.0-48.0); HEMOGLOBIN 10.5 g/dL (13-16.00); MEAN CELL VOLUME 86.2 fL (80.0-100.00); MEAN CORPUSCULAR HEMOGLOBIN 28.6 pg (27.00-32.0); MEAN CORPUSCULAR HGB CONC 33.2 g/dl (32.0-36.0); PLATELET COUNT 180 K/uL (150-450); RED BLOOD COUNT 3.66 M/uL (4.00-6.00); RED CELL DISTRIBUTION WIDTH 15.8 % (11.5-14.5)
[2024-08-31 06:27] LABS: URINE APPEARANCE Clear; URINE BILIRRUBIN Negative (NEGATIVE); URINE BLOOD Negative; URINE COLOR Yellow; URINE GLUCOSE Negative (NEGATIVE); URINE KETONE Negative (NEGATIVE); URINE LEUKOCYTE Negative; URINE NITRATE Negative; URINE PROTEIN Negative (NEGATIVE); URINE UROBILINOGEN 0.2 E.U./dl
[2024-08-31 06:30] LABS: URINE BACTERIA 6.1 uL (0.0-1933); URINE EPITHELIAL CELLS 3.1 uL (0.0-38.8)
[2024-08-31 06:32] LABS: URINE CAST 0.58 uL (0.0-1.40); URINE RBC 0.5 uL (0.0-20.8); URINE WBC 1.1 uL (0.0-23.2)
[2024-08-31 06:53] LABS: CALCIUM 8.7 mg/dL (8.5-10.1); CREATININE SERUM 2.01 mg/dL (0.70-1.30); GFR 31.51; MAGNESIUM 2.2 mg/dL (1.8-2.4); PHOSPHOROUS 3.1 mg/dL (2.5-4.9); POTASSIUM 5.29 mEq/L (3.5-5.1)
[2024-08-31 10:10] VITALS: BP 146/77; O2SAT 98
[2024-08-31 18:19] VITALS: BP 168/75; O2SAT 98
[2024-09-01 02:12] VITALS: BP 157/62
[2024-09-01 08:00] VITALS: BP 148/67
[2024-09-01] MEDS ORDERED: METHYLPREDNISOLONE SOD SUCC 40 MG VIAL IV SCH (09:00)
[2024-09-01] MEDS ORDERED: FAMOtidine 20 MG TABLET PO SCH (09:00)
[2024-09-01] MEDS ORDERED: BENZONATATE100 MG PO (14:40)
[2024-09-01] MEDS ORDERED: FAMOTIDINE20 MG PO (14:40)
[2024-09-01] MEDS ORDERED: MONTELUKAST SOD10 MG PO (14:40)
[2024-09-01] MEDS ORDERED: SYNTHROID100 MCG PO (14:40)
[2024-09-01] MEDS ORDERED: LORATADINE10 MG PO (14:40)
[2024-09-01] MEDS ORDERED: ATACAND32 MG PO (14:40)
[2024-09-01] MEDS ORDERED: SIMVASTATIN20 MG PO (14:40)
[2024-09-01] MEDS ORDERED: prednisone PO (14:40)
[2024-09-01] MEDS ORDERED: FLONASE16 GM NASAL (14:40)
[2024-09-01] MEDS ORDERED: AMOXICILLIN 500 MG PO (14:40)
== END 2024-09-01 14:56 | disposition home or self-care (01) | DRG 191 ==
LOC: ER 18:28 → MEDJ 23:01 → MEDI 23:01 → SEC-K 23:42 → MEDJ 08-27 02:17
PROVIDERS: General Practice; Internal Medicine Infectious Disease; ADMIT Internal Medicine Geriatric Medicine; ATTEND Internal Medicine Geriatric Medicine
PROC: BW24ZZZ Computerized Tomography (CT Scan) of Chest and Abdomen (ICD-10-PCS; principal; 2024-08-26)
DX: J44.1 Chronic obstructive pulmonary disease with (acute) exacerbation (principal); E27.49 Other adrenocortical insufficiency; J45.41 Moderate persistent asthma with (acute) exacerbation; N17.9 Acute kidney failure, unspecified; I12.9 Hypertensive chronic kidney disease with stage 1 through stage 4 chronic kidney disease, or unspecified chronic kidney disease; N18.9 Chronic kidney disease, unspecified; E03.9 Hypothyroidism, unspecified; E09.22 Drug or chemical induced diabetes mellitus with diabetic chronic kidney disease; T38.0X5A Adverse effect of glucocorticoids and synthetic analogues, initial encounter; Z79.4 Long term (current) use of insulin; E78.5 Hyperlipidemia, unspecified

== ENCOUNTER 2024-10-05 08:08 | Emergency (ER) | payer OTHER ==
[~2024-10-05] VITALS: Ht 154.9 cm; Wt 76.2 kg
[~2024-10-05 08:08] MED LIST changes: +AMOXICILLIN 500 MG PO; +FLONASE16 GM NASAL
[2024-10-05] MEDS ORDERED: METHYLPREDNISOLONE SOD SUCC 125 MG in DEXTROSE 5 % IN WATER 100 ML IV STA (08:40)
[2024-10-05] MEDS ORDERED: 0.9 % SODIUM CHLORIDE 1,000 ML IV STA (08:40)
[2024-10-05] MEDS ORDERED: LEVALBUTEROL HCL 1.25 MG/3 ML SOLUTION IH STA (08:41)
[2024-10-05] MEDS ORDERED: BUDESONIDE 0.5 MG/2 ML AMPUL.NEB IH STA (08:41)
[2024-10-05] MEDS ORDERED: HYDROCODONE/CHLORPHEN P-STIREX 5 ML ML PO STA (08:42)
[2024-10-05] MEDS ORDERED: METHYLPREDNISOLONE SOD SUCC 125 MG VIAL ONE (08:47)
[2024-10-05 09:19] LABS: HEMOGLOBIN 11.7 g/dL (13-16.00); MEAN CELL VOLUME 82.6 fL (80.0-100.00); MEAN CORPUSCULAR HEMOGLOBIN 27.6 pg (27.00-32.0); MEAN CORPUSCULAR HGB CONC 33.4 g/dl (32.0-36.0); PLATELET COUNT 268 K/uL (150-450); RED BLOOD COUNT 4.24 M/uL (4.00-6.00); RED CELL DISTRIBUTION WIDTH 15.6 % (11.5-14.5)
[2024-10-05 09:42] LABS: ALBUMIN 3.4 gm/dL (3.4-5.0); BILIRUBIN TOTAL 0.52 mg/dL (0.3-1.2); BILIRUBIN,CONJUGATED 0.13 mg/dL (0.0-0.2); BILIRUBIN,UNCONJUGATED 0.39 mg/dL (0.0-0.6); CALCIUM 9.7 mg/dL (8.5-10.1); CREATININE SERUM 2.09 mg/dL (0.70-1.30); GFR 30.12; POTASSIUM 4.28 mEq/L (3.5-5.1); TOTAL PROTEIN 6.8 gm/dL (6.4-8.2)
[2024-10-05] MEDS ORDERED: LEVALBUTEROL HCL 1.25 MG/3 ML SOLUTION IH ONE (11:02)
[2024-10-05] MEDS ORDERED: BUDESONIDE 0.25 MG/2 ML AMPUL.NEB IH ONE (11:02)
[2024-10-05] MEDS ORDERED: MAGNESIUM SULFATE IN WATER 4 GM/100 ML PIGGYBACK IV STA (11:28)
== END 2024-10-05 13:35 | disposition home or self-care (01) ==
LOC: ER 08:09
PROVIDERS: General Practice
DX: J44.1 Chronic obstructive pulmonary disease with (acute) exacerbation (principal); Z20.822 Contact with and (suspected) exposure to COVID-19; Z91.013 Allergy to seafood
CPT/HCPCS: 36415; 71046; 93005; 94640; 96365; 96366; 99283; J2270; J3490; J7030

== ENCOUNTER 2024-11-07 01:34 | Inpatient (IN) | payer OTHER ==
[~2024-11-07] VITALS: Ht 154.9 cm; Wt 76.2 kg
[2024-11-07] MEDS ORDERED: ALBUTEROL SULFATE 3 ML/2.5 MG AMPUL.NEB IH ONE ×5 (01:42→21:02)
[2024-11-07] MEDS ORDERED: METHYLPREDNISOLONE SOD SUCC 125 MG VIAL IV STA (01:44)
[2024-11-07] MEDS ORDERED: 0.9 % SODIUM CHLORIDE 1,000 ML IV ONE (01:45)
[2024-11-07] MEDS ORDERED: ALBUTEROL SULFATE 3 ML/2.5 MG AMPUL.NEB IH SCH ×2 (01:45→09:00)
[2024-11-07] MEDS ORDERED: METHYLPREDNISOLONE SOD SUCC 125 MG VIAL ONE (01:48)
[2024-11-07 02:28] LABS: MEAN CORPUSCULAR HEMOGLOBIN 27.2 pg (25.6-32.2); RED CELL DISTRIBUTION WIDTH 14.9 % (11.6-14.4)
[2024-11-07 02:35] LABS: BASO % 0.9 % (0.1-1.2); EOS # 1.41 (0.04-0.54); EOS % 11.4 % (0.7-7.0); HEMATOCRIT 36.2 % (40.1-51.0); HEMOGLOBIN 11.7 g/dL (13.7-17.5); LYMPH # 2.91 (1.18-3.74); LYMPH % 23.5 % (19.3-53.1); MONO # 1.09 (0.24-0.82); MONO % 8.8 % (4.7-12.5); NEUT # 6.83 (1.56-6.13); PLATELET COUNT 319 K/uL (163-369)
[2024-11-07 02:58] LABS: ABG PH 7.327 (7.35-7.45); ABG pCO2 44.2 mmHg (35-45); BASE EXCESS -3.4 mmol/l; BICARBONATE 22.6 mmol/l (23-25); allen test SATISFACTORY; mode ROOM AIR; o2 21 %; puncture site RADIAL RIGHT
[2024-11-07 02:59] LABS: ABG PO2 73.5 mmHg (80-100)
[2024-11-07 03:03] LABS: ALBUMIN 3.6 gm/dL (3.4-5.0); BILIRUBIN TOTAL 0.42 mg/dL (0.3-1.2); CALCIUM 9.2 mg/dL (8.5-10.1); CREATININE SERUM 2.58 mg/dL (0.70-1.30); GFR 23.62; GLOBULINA 3.3 G/DL (2.4-3.5); POTASSIUM 4.3 mEq/L (3.5-5.1); TOTAL PROTEIN 6.9 gm/dL (6.4-8.2)
[2024-11-07 03:56] LABS: COVID-19 AG NEGATIVE (NEGATIVE); INFLUENZA A AG NEGATIVE (NEGATIVE); INFLUENZA B AG NEGATIVE (NEGATIVE)
[2024-11-07 08:24] LABS: URINE APPEARANCE Clear; URINE BILIRRUBIN Negative (NEGATIVE); URINE BLOOD Negative; URINE COLOR Yellow; URINE GLUCOSE Negative (NEGATIVE); URINE KETONE Negative (NEGATIVE); URINE LEUKOCYTE Negative; URINE NITRATE Negative; URINE PROTEIN Trace (NEGATIVE); URINE UROBILINOGEN 0.2 E.U./dl
[2024-11-07 08:25] LABS: URINE BACTERIA 7.3 uL (0.0-1933); URINE EPITHELIAL CELLS 4.7 uL (0.0-38.8); URINE RBC 4.4 uL (0.0-20.8); URINE WBC 4.5 uL (0.0-23.2)
[2024-11-07 08:37] LABS: URINE CAST 0.29 uL (0.0-1.40)
[2024-11-07] MEDS ORDERED: LEVALBUTEROL HCL 1.25 MG/3 ML SOLUTION IH SCH (13:00)
[2024-11-07] MEDS ORDERED: METHYLPREDNISOLONE SOD SUCC 40 MG VIAL IV SCH (13:45)
[2024-11-07] MEDS ORDERED: BUDESONIDE 0.5 MG/2 ML AMPUL.NEB IH SCH (13:46)
[2024-11-07] MEDS ORDERED: FAMOTIDINE/PF 20 MG in 0.9 % SODIUM CHLORIDE 8 ML IV PUSH SCH (13:46)
[2024-11-07] MEDS ORDERED: GUAIFENESIN/DEXTROMETHORPHAN 100MG/10ML BLIST.PACK PO SCH ×2 (13:49→18:00)
[2024-11-07] MEDS ORDERED: AZITHROMYCIN 500 MG VIAL IV SCH (13:49)
[2024-11-07] MEDS ORDERED: CEFTRIAXONE SODIUM 2,000 MG in DEXTROSE 5 % IN WATER 100 ML IV SCH (13:50)
[2024-11-07] MEDS ORDERED: hydrALAZINE HCL 20 MG VIAL IV PRN (14:00)
[2024-11-07] MEDS ORDERED: ACETAMINOPHEN 500 MG GEL..CAP PO PRN (14:00)
[2024-11-07] MEDS ORDERED: CANDESARTAN CILEXETIL 32 MG TABLET PO SCH (14:00)
[2024-11-07] MEDS ORDERED: METHYLPREDNISOLONE SOD SUCC 40 MG VIAL ONE ×2 (14:21→16:44)
[2024-11-07] MEDS ORDERED: CEFTRIAXONE SODIUM 1,000 MG VIAL ONE (14:22)
[2024-11-07] MEDS ORDERED: FAMOTIDINE/PF 20 MG/2 ML VIAL ONE ×2 (14:22→21:14)
[2024-11-07] MEDS ORDERED: AZITHROMYCIN 500 MG VIAL IV ONE (14:22)
[2024-11-07] MEDS ORDERED: GUAIFENESIN/DEXTROMETHORPHAN 100MG/10ML BLIST.PACK PO ONE ×2 (14:22→16:45)
[2024-11-07 15:58] VITALS: BP 173/67; O2SAT 97
[2024-11-07 16:09] VITALS: BP 173/67
[2024-11-07] MEDS ORDERED: BENZONATATE 100 MG CAPSULE PO ONE ×2 (16:44→21:02)
[2024-11-07] MEDS ORDERED: LEVALBUTEROL HCL 1.25 MG/3 ML SOLUTION IH ONE ×2 (16:44→21:02)
[2024-11-07] MEDS ORDERED: BUDESONIDE 0.5 MG/2 ML AMPUL.NEB IH ONE ×2 (16:44→21:02)
[2024-11-07] MEDS ORDERED: ENOXAPARIN SODIUM 30 MG/0.3 ML SYRINGE SUBCUTANEO SCH (17:00)
[2024-11-07] MEDS ORDERED: SIMVASTATIN 20 MG TABLET PO SCH (17:00)
[2024-11-07] MEDS ORDERED: BENZONATATE 100 MG CAPSULE PO SCH (17:00)
[2024-11-07] MEDS ORDERED: FLUTICASONE PROPIONATE 50 MCG SPRAY NASAL SCH (21:00)
[2024-11-07] MEDS ORDERED: MONTELUKAST SODIUM 10 MG TABLET PO SCH (21:00)
[2024-11-07] MEDS ORDERED: ORPHENADRINE CITRATE 30 MG/ML AMPUL ONE (21:15)
[2024-11-07] MEDS ORDERED: KETOROLAC TROMETHAMINE 60 MG VIAL IM ONE (21:15)
[2024-11-07 22:45] VITALS: BP 160/77; O2SAT 100
[2024-11-08] VITALS (8 sets, daily range): BP systolic 114–160; BP diastolic 60–79; O2SAT 85–100
[2024-11-08] MEDS ORDERED: LEVOTHYROXINE SODIUM 100 MCG TABLET PO SCH (06:00)
[2024-11-08 07:04] LABS: BASO % 0.1 % (0.1-1.2); HEMATOCRIT 30.7 % (40.1-51.0); HEMOGLOBIN 9.9 g/dL (13.7-17.5); LYMPH # 0.52 (1.18-3.74); LYMPH % 3.5 % (19.3-53.1); MEAN CORPUSCULAR HEMOGLOBIN 26.8 pg (25.6-32.2); MONO # 0.27 (0.24-0.82); MONO % 1.8 % (4.7-12.5); NEUT # 14.03 (1.56-6.13); NEUT % 93.9 % (34.0-71.1); PLATELET COUNT 251 K/uL (163-369); RED CELL DISTRIBUTION WIDTH 14.6 % (11.6-14.4)
[2024-11-08 08:27] LABS: ALBUMIN 3.1 gm/dL (3.4-5.0); ALKALINE PHOSPHATASE 68 U/L (50-136); ALT/SGPT 21 U/L (12-78); ANION GAP 14 (10.0-20.0); AST/SGOT 25 U/L (15-37); BILIRUBIN TOTAL 0.45 mg/dL (0.3-1.2); BLOOD UREA NITROGEN 33 mg/dL (7-18); BUN CREA RATIO 15 (7.0-25.0); CALCIUM 8.4 mg/dL (8.5-10.1); CARBON DIOXIDE 21 mEq/L (21-32); CHLORIDE 111 mmol/L (98-107); CREATININE SERUM 2.25 mg/dL (0.70-1.30); GFR 27.66; GLOBULINA 2.5 G/DL (2.4-3.5); GLUCOSE FASTING 141 mg/dL (65-100); OSMOLALITY SERUM 293 MOSM/KG (275-295); PHOSPHOROUS 3.6 mg/dL (2.5-4.9); POTASSIUM 4.49 mEq/L (3.5-5.1); SODIUM 142 mmol/L (136-145); TOTAL PROTEIN 5.6 gm/dL (6.4-8.2)
[2024-11-08] MEDS ORDERED: AZITHROMYCIN 500 MG VIAL IV ONE (08:29)
[2024-11-08 08:34] LABS: C-REACTIVE PROTEIN < 0.29 MG/DL (0.00-0.29); TSH 0.051 uIU/mL (0.358-3.74)
[2024-11-08] MEDS ORDERED: METHYLPREDNISOLONE SOD SUCC 40 MG VIAL IV STA (08:42)
[2024-11-08] MEDS ORDERED: LEVALBUTEROL HCL 1.25 MG/3 ML SOLUTION IH STA (08:43)
[2024-11-08] MEDS ORDERED: LORATADINE 10 MG TABLET PO SCH (09:00)
[2024-11-08] MEDS ORDERED: LevETIRAcetam 500 MG/5 ML VIAL IV ONE (18:42)
[2024-11-08] MEDS ORDERED: LORazepam 2 MG/ML VIAL ONE (18:43)
[2024-11-08] MEDS ORDERED: LORazepam 2 MG/ML VIAL IV PUSH STA (18:56)
[2024-11-08] MEDS ORDERED: LevETIRAcetam 500 MG/5 ML VIAL IV STA (19:01)
[2024-11-09] VITALS (10 sets, daily range): BP systolic 129–186; BP diastolic 70–76; O2SAT 95–100
[2024-11-09 06:48] LABS: MYCOPLASMA PNEUMONIAE IGM NON REACTIVE (NO REACTIVE)
[2024-11-09] MEDS ORDERED: FAMOTIDINE/PF 20 MG/2 ML VIAL ONE (08:20)
[2024-11-09] MEDS ORDERED: AZITHROMYCIN 500 MG VIAL IV ONE (08:20)
[2024-11-09] MEDS ORDERED: CEFTRIAXONE SODIUM 2,000 MG VIAL ONE (08:21)
[2024-11-09] MEDS ORDERED: LevETIRAcetam 500 MG/5 ML VIAL IV SCH (09:00)
[2024-11-09] MEDS ORDERED: EMOLLIENT COMBINATION NO.92 2.5 OZ BOTTLE TOP SCH (09:06)
[2024-11-09] MEDS ORDERED: Cyanocobalamin/Mecobalamin 1 TAB.SL SL NR (11:15)
[2024-11-09] MEDS ORDERED: SOD FERRIC GLUC COMPLX/SUCROSE 62.5 MG in 0.9 % SODIUM CHLORIDE 50 ML IV SCH (12:00)
[2024-11-09] MEDS ORDERED: SOD FERRIC GLUC COMPLX/SUCROSE 62.5 MG/5 ML AMPUL IV ONE (13:32)
[2024-11-09] MEDS ORDERED: LINEZOLID IN DEXTROSE 5% 300 ML IV NR (14:00)
[2024-11-09] MEDS ORDERED: ENOXAPARIN SODIUM 30 MG/0.3 ML SYRINGE SUBCUTANEO SCH (17:00)
[2024-11-09 17:58] LABS: BASO % 0.1 % (0.1-1.2); HEMATOCRIT 30.9 % (40.1-51.0); HEMOGLOBIN 10.2 g/dL (13.7-17.5); LYMPH # 0.27 (1.18-3.74); MEAN CORPUSCULAR HEMOGLOBIN 27.8 pg (25.6-32.2); MONO # 1.19 (0.24-0.82); MONO % 4.4 % (4.7-12.5); NEUT # 25.51 (1.56-6.13); NEUT % 93.4 % (34.0-71.1); PLATELET COUNT 241 K/uL (163-369); RED BLOOD COUNT 3.67 M/uL (4.63-6.08); RED CELL DISTRIBUTION WIDTH 14.8 % (11.6-14.4)
[2024-11-09 18:20] LABS: ALBUMIN 3.3 gm/dL (3.4-5.0); BILIRUBIN TOTAL 0.46 mg/dL (0.3-1.2); CALCIUM 8.3 mg/dL (8.5-10.1); CREATININE SERUM 2.41 mg/dL (0.70-1.30); GFR 25.55; GLOBULINA 2.5 G/DL (2.4-3.5); MAGNESIUM 2.6 mg/dL (1.8-2.4); PHOSPHOROUS 2.5 mg/dL (2.5-4.9); POTASSIUM 4.44 mEq/L (3.5-5.1); TOTAL PROTEIN 5.8 gm/dL (6.4-8.2)
[2024-11-09] MEDS ORDERED: LINEZOLID IN DEXTROSE 5% 300 ML IV SCH (21:00)
[2024-11-10] VITALS (9 sets, daily range): BP systolic 124–150; BP diastolic 76–84; O2SAT 97–100
[2024-11-10 07:26] LABS: BASO % 0.1 % (0.1-1.2); HEMATOCRIT 32.2 % (40.1-51.0); HEMOGLOBIN 10.1 g/dL (13.7-17.5); LYMPH # 0.28 (1.18-3.74); LYMPH % 1.1 % (19.3-53.1); MEAN CORPUSCULAR HEMOGLOBIN 26.3 pg (25.6-32.2); MONO # 0.89 (0.24-0.82); MONO % 3.5 % (4.7-12.5); NEUT # 23.96 (1.56-6.13); NEUT % 94.2 % (34.0-71.1); PLATELET COUNT 225 K/uL (163-369); RED BLOOD COUNT 3.84 M/uL (4.63-6.08)
[2024-11-10 08:23] LABS: ALBUMIN 3.3 gm/dL (3.4-5.0); BILIRUBIN TOTAL 0.53 mg/dL (0.3-1.2); CALCIUM 8.4 mg/dL (8.5-10.1); CREATININE SERUM 2.47 mg/dL (0.70-1.30); GFR 24.84; GLOBULINA 2.4 G/DL (2.4-3.5); MAGNESIUM 2.6 mg/dL (1.8-2.4); PHOSPHOROUS 3.1 mg/dL (2.5-4.9); POTASSIUM 4.67 mEq/L (3.5-5.1); TOTAL PROTEIN 5.7 gm/dL (6.4-8.2)
[2024-11-10] MEDS ORDERED: Cyanocobalamin/Mecobalamin 1 TAB.SL SL SCH (09:00)
[2024-11-10] MEDS ORDERED: AZITHROMYCIN 500 MG VIAL IV ONE (09:09)
[2024-11-10] MEDS ORDERED: LevETIRAcetam 500 MG TAB. PO SCH (21:00)
[2024-11-11] VITALS (10 sets, daily range): BP systolic 131–173; BP diastolic 74–92; O2SAT 92–100
[2024-11-11] MEDS ORDERED: FAMOtidine 20 MG TABLET PO SCH (09:00)
[2024-11-11 10:53] LABS: BASO % 0.1 % (0.1-1.2); HEMATOCRIT 32.3 % (40.1-51.0); HEMOGLOBIN 10.3 g/dL (13.7-17.5); LYMPH # 0.38 (1.18-3.74); MEAN CORPUSCULAR HEMOGLOBIN 27.1 pg (25.6-32.2); MONO # 0.61 (0.24-0.82); MONO % 3.2 % (4.7-12.5); NEUT # 17.68 (1.56-6.13); NEUT % 93.4 % (34.0-71.1); PLATELET COUNT 191 K/uL (163-369); RED CELL DISTRIBUTION WIDTH 14.7 % (11.6-14.4)
[2024-11-11 12:09] LABS: BILIRUBIN TOTAL 0.26 mg/dL (0.3-1.2); CALCIUM 8.2 mg/dL (8.5-10.1); CREATININE SERUM 2.39 mg/dL (0.70-1.30); GFR 25.8; GLOBULINA 2.9 G/DL (2.4-3.5); MAGNESIUM 2.6 mg/dL (1.8-2.4); PHOSPHOROUS 3.1 mg/dL (2.5-4.9); POTASSIUM 5.01 mEq/L (3.5-5.1); TOTAL PROTEIN 5.9 gm/dL (6.4-8.2)
[2024-11-11 12:10] LABS: C-REACTIVE PROTEIN 0.62 MG/DL (0.00-0.29)
[2024-11-11] MEDS ORDERED: POLYETHYLENE GLYCOL 3350 17 GM BLIST.PACK PO SCH (21:00)
[2024-11-12] VITALS (10 sets, daily range): BP systolic 137–173; BP diastolic 70–80; O2SAT 98–100
[2024-11-13] VITALS (9 sets, daily range): BP systolic 131–161; BP diastolic 74–83; O2SAT 95–100
[2024-11-13] MEDS ORDERED: MAGNESIUM HYDROXIDE 30 ML BLIST.PACK PO ONE (18:00)
[2024-11-13] MEDS ORDERED: MINERAL OIL 30 ML BLIST.PACK PO ONE (18:00)
[2024-11-13] MEDS ORDERED: LACTULOSE 20 G/30 ML BLIST.PACK PO ONE (18:00)
[2024-11-14 01:00] VITALS: O2SAT 100
[2024-11-14 01:14] VITALS: BP 149/84; O2SAT 99
[2024-11-14 05:00] VITALS: O2SAT 100
[2024-11-14 06:45] LABS: BASO % 0.1 % (0.1-1.2); HEMATOCRIT 30.9 % (40.1-51.0); HEMOGLOBIN 10.1 g/dL (13.7-17.5); LYMPH # 0.33 (1.18-3.74); LYMPH % 1.6 % (19.3-53.1); MEAN CORPUSCULAR HEMOGLOBIN 27.6 pg (25.6-32.2); MONO # 0.96 (0.24-0.82); MONO % 4.5 % (4.7-12.5); NEUT % 90.8 % (34.0-71.1); PLATELET COUNT 200 K/uL (163-369); RED BLOOD COUNT 3.66 M/uL (4.63-6.08); RED CELL DISTRIBUTION WIDTH 14.5 % (11.6-14.4)
[2024-11-14 07:53] LABS: CALCIUM 7.8 mg/dL (8.5-10.1); CREATININE SERUM 2.13 mg/dL (0.70-1.30); GFR 29.47; POTASSIUM 5.41 mEq/L (3.5-5.1)
[2024-11-14 07:54] VITALS: BP 165/81; O2SAT 96
[2024-11-14] MEDS ORDERED: VITAMIN B COMPLEX/LYSINE 1 ML ML PO SCH (13:00)
[2024-11-14 17:34] VITALS: O2SAT 98
[2024-11-14] MEDS ORDERED: METHYLPREDNISOLONE SOD SUCC 40 MG VIAL IV SCH (21:00)
[2024-11-14 21:13] VITALS: O2SAT 100
[2024-11-15] VITALS (9 sets, daily range): BP systolic 109–167; BP diastolic 61–86; O2SAT 96–100
[2024-11-15] MEDS ORDERED: CALCIUM CARBONATE/VITAMIN D3 1 TAB TABLET PO SCH (09:00)
[2024-11-15] MEDS ORDERED: CHOLECALCIFEROL (VITAMIN D3) 5,000 UNITS TABLET PO SCH (09:00)
[2024-11-15] MEDS ORDERED: LACTULOSE 20 G/30 ML BLIST.PACK PO STA (09:55)
[2024-11-15 13:42] LABS: RED BLOOD COUNT 4.02 M/uL (4.63-6.08)
[2024-11-15 13:43] LABS: BASO % 0.2 % (0.1-1.2); HEMATOCRIT 33.9 % (40.1-51.0); HEMOGLOBIN 11.1 g/dL (13.7-17.5); LYMPH % 0.7 % (19.3-53.1); MEAN CORPUSCULAR HEMOGLOBIN 27.6 pg (25.6-32.2); MONO % 5.3 % (4.7-12.5); NEUT % 89.9 % (34.0-71.1); PLATELET COUNT 241 K/uL (163-369); RED CELL DISTRIBUTION WIDTH 14.7 % (11.6-14.4)
[2024-11-15 13:44] LABS: LYMPH # 0.24 (1.18-3.74); MONO # 1.78 (0.24-0.82); NEUT # 30.05 (1.56-6.13)
[2024-11-15 14:37] LABS: ANION GAP 15 (10.0-20.0); CALCIUM 8.3 mg/dL (8.5-10.1); CARBON DIOXIDE 23 mEq/L (21-32); CHLORIDE 105 mmol/L (98-107); CREATININE SERUM 2.88 mg/dL (0.70-1.30); PHOSPHOROUS 4.3 mg/dL (2.5-4.9); POTASSIUM 5.64 mEq/L (3.5-5.1); SODIUM 137 mmol/L (136-145)
[2024-11-15 14:45] LABS: BUN CREA RATIO 30 (7.0-25.0); OSMOLALITY SERUM 306 MOSM/KG (275-295)
[2024-11-15 14:46] LABS: BLOOD UREA NITROGEN 86 mg/dL (7-18); C-REACTIVE PROTEIN < 0.29 MG/DL (0.00-0.29); GLUCOSE FASTING 209 mg/dL (65-100)
[2024-11-15] MEDS ORDERED: 0.9 % SODIUM CHLORIDE 1,000 ML IV SCH (16:15)
[2024-11-15] MEDS ORDERED: SODIUM POLYSTYRENE SULFONATE 30G/8 TSP PO SCH (20:00)
[2024-11-15] MEDS ORDERED: FAMOtidine 20 MG TABLET PO SCH (21:00)
[2024-11-15] MEDS ORDERED: hydrALAZINE HCL 50 MG TABLET PO SCH (21:00)
[2024-11-16] VITALS (10 sets, daily range): BP systolic 135–186; BP diastolic 77–80; O2SAT 95–100
[2024-11-16] MEDS ORDERED: PANTOPRAZOLE SODIUM 40 MG TABLET.DR PO SCH (06:00)
[2024-11-16 06:30] LABS: URINE APPEARANCE Clear; URINE BILIRRUBIN Negative (NEGATIVE); URINE BLOOD Large; URINE COLOR Yellow; URINE GLUCOSE Negative (NEGATIVE); URINE KETONE Negative (NEGATIVE); URINE LEUKOCYTE Small; URINE NITRATE Negative; URINE PROTEIN Trace (NEGATIVE); URINE UROBILINOGEN 0.2 E.U./dl
[2024-11-16 06:31] LABS: URINE BACTERIA 58.7 uL (0.0-1933); URINE EPITHELIAL CELLS 12.9 uL (0.0-38.8); URINE RBC 93.9 uL (0.0-20.8); URINE WBC 18.8 uL (0.0-23.2)
[2024-11-16 06:48] LABS: BASO % 0.2 % (0.1-1.2); HEMATOCRIT 34.6 % (40.1-51.0); HEMOGLOBIN 11.5 g/dL (13.7-17.5); LYMPH % 1.1 % (19.3-53.1); MEAN CORPUSCULAR HEMOGLOBIN 27.7 pg (25.6-32.2); MONO # 1.97 (0.24-0.82); MONO % 5.3 % (4.7-12.5); NEUT % 89.7 % (34.0-71.1); PLATELET COUNT 228 K/uL (163-369); RED BLOOD COUNT 4.15 M/uL (4.63-6.08); RED CELL DISTRIBUTION WIDTH 14.9 % (11.6-14.4)
[2024-11-16 06:54] LABS: URINE CAST 0.88 uL (0.0-1.40); URINE CRYSTALS MANY /HPF
[2024-11-16 07:13] LABS: CALCIUM 8.1 mg/dL (8.5-10.1); MAGNESIUM 3.1 mg/dL (1.8-2.4); PHOSPHOROUS 5.2 mg/dL (2.5-4.9)
[2024-11-16 07:19] LABS: GFR 14.04
[2024-11-16 07:21] LABS: CREATININE SERUM 4.05 mg/dL (0.70-1.30); POTASSIUM 5.97 mEq/L (3.5-5.1)
[2024-11-16] MEDS ORDERED: CALCIUM GLUCONATE 100 MG/ML VIAL IV STA (07:26)
[2024-11-16] MEDS ORDERED: INSULIN REGULAR, HUMAN 1,000 UNIT/10 ML UNITS IV STA (07:28)
[2024-11-16] MEDS ORDERED: DEXTROSE 5%-LACTATED RINGERS 500 ML IV ONE (07:30)
[2024-11-16] MEDS ORDERED: 0.9 % SODIUM CHLORIDE 1,000 ML IV SCH (07:30)
[2024-11-16] MEDS ORDERED: AMLODIPINE BESYLATE 5 MG TABLET PO SCH (09:00)
[2024-11-16] MEDS ORDERED: SODIUM POLYSTYRENE SULFONATE 30G/8 TSP PO SCH (12:00)
[2024-11-16] MEDS ORDERED: LIDOCAINE HCL 1% 10ML VIAL PERCUT NR (13:00)
[2024-11-16] MEDS ORDERED: HEPARIN SODIUM,PORCINE 5,000 UNITS/ML VIAL IV NR (13:00)
[2024-11-16] MEDS ORDERED: CEFEPIME HCL 1,000 MG VIAL IV SCH (17:00)
[2024-11-16] MEDS ORDERED: METRONIDAZOLE/SODIUM CHLORIDE 100 ML IV SCH (21:00)
[2024-11-16] MEDS ORDERED: LevETIRAcetam 500 MG/5 ML VIAL IV SCH (21:00)
[2024-11-16] MEDS ORDERED: FAMOTIDINE/PF 20 MG/2 ML VIAL IV PUSH SCH (21:00)
[2024-11-17] VITALS (14 sets, daily range): BP systolic 88–143; BP diastolic 45–73; O2SAT 92–100
[2024-11-17] MEDS ORDERED: LORazepam 2 MG/ML VIAL ONE ×2 (03:51→13:27)
[2024-11-17] MEDS ORDERED: LORazepam 2 MG/ML VIAL IV PUSH STA ×2 (05:48→08:09)
[2024-11-17] MEDS ORDERED: PANTOPRAZOLE SODIUM 40 MG in 0.9 % SODIUM CHLORIDE 8 ML IV PUSH SCH (06:00)
[2024-11-17] MEDS ORDERED: PHENYTOIN SODIUM 100 MG/2 ML VIAL IV STA (08:08)
[2024-11-17] MEDS ORDERED: LevETIRAcetam 500 MG/5 ML VIAL IV STA (08:31)
[2024-11-17] MEDS ORDERED: METHYLPREDNISOLONE SOD SUCC 40 MG VIAL IV SCH (11:00)
[2024-11-17 11:32] LABS: BASO % 0.3 % (0.1-1.2); EOS # 0.01 (0.04-0.54); HEMATOCRIT 33.2 % (40.1-51.0); HEMOGLOBIN 10.7 g/dL (13.7-17.5); LYMPH # 0.62 (1.18-3.74); LYMPH % 1.7 % (19.3-53.1); MEAN CORPUSCULAR HEMOGLOBIN 27.4 pg (25.6-32.2); MONO % 6.2 % (4.7-12.5); NEUT # 32.71 (1.56-6.13); PLATELET COUNT 196 K/uL (163-369); RED BLOOD COUNT 3.91 M/uL (4.63-6.08); RED CELL DISTRIBUTION WIDTH 15.1 % (11.6-14.4)
[2024-11-17 12:51] LABS: ALBUMIN 2.5 gm/dL (3.4-5.0); BILIRUBIN TOTAL 0.79 mg/dL (0.3-1.2); CALCIUM 7.9 mg/dL (8.5-10.1); GLOBULINA 2.5 G/DL (2.4-3.5); MAGNESIUM 3.3 mg/dL (1.8-2.4)
[2024-11-17] MEDS ORDERED: LevETIRAcetam 500 MG/5 ML VIAL IV SCH ×2 (13:00→21:00)
[2024-11-17] MEDS ORDERED: PHENYTOIN SODIUM 100 MG/2 ML VIAL IV SCH ×2 (13:00→21:00)
[2024-11-17 13:01] LABS: GFR 8.26
[2024-11-17 13:28] LABS: CREATININE SERUM 6.41 mg/dL (0.70-1.30); POTASSIUM 6.76 mEq/L (3.5-5.1)
[2024-11-17] MEDS ORDERED: LORazepam 2 MG/ML VIAL IV PUSH PRN ×2 (13:45→17:57)
[2024-11-17] MEDS ORDERED: DEXTROSE 5%-LACTATED RINGERS 500 ML IV ONE (13:45)
[2024-11-17] MEDS ORDERED: CALCIUM GLUCONATE 100 MG/ML VIAL IV STA (14:05)
[2024-11-17] MEDS ORDERED: INSULIN REGULAR, HUMAN 1,000 UNIT/10 ML UNITS IV NR (14:07)
[2024-11-17] MEDS ORDERED: NOREPINEPHRINE BITARTRATE 1 MG/ML AMPUL IV ONE (14:10)
[2024-11-17] MEDS ORDERED: NOREPINEPHRINE BITARTRATE 8 MG in DEXTROSE 5 % IN WATER 250 ML IV SCH (14:15)
[2024-11-17] MEDS ORDERED: MORPHINE SULFATE 4 MG/ML CARTRIDGE IV PRN (16:30)
[2024-11-17] MEDS ORDERED: (FF) Daptomycin 50 MG/ML IV SCH (17:00)
[2024-11-17] MEDS ORDERED: LORazepam 2 MG/ML VIAL IV STA (17:56)
[2024-11-18] VITALS (15 sets, daily range): BP systolic 70–158; BP diastolic 30–71; O2SAT 95–100
[2024-11-18] MEDS ORDERED: LevETIRAcetam 5 MG/1 ML REDILUIDO IV SCH (13:00)
[2024-11-19] VITALS (11 sets, daily range): BP systolic 87–158; BP diastolic 48–68; O2SAT 96–100
[2024-11-19] MEDS ORDERED: MORPHINE SULFATE 4 MG/ML CARTRIDGE IV SCH (18:00)
[2024-11-20] VITALS (7 sets, daily range): BP systolic 60–90; BP diastolic 34–55; O2SAT 94–98
== END 2024-11-20 17:56 | disposition expired | DRG 871 ==
LOC: ER 01:34 → MEDI 15:59 → SEC-K 15:59 → MEDI 21:57 → MEDJ 11-16 18:30 → ICU 11-17 21:06 → MEDJ 11-18 17:05
PROVIDERS: General Practice; Internal Medicine; Internal Medicine Infectious Disease; Internal Medicine Nephrology; ADMIT Internal Medicine Geriatric Medicine; ATTEND Internal Medicine Geriatric Medicine
PROC: 02HV33Z Insertion of Infusion Device into Superior Vena Cava, Percutaneous Approach (ICD-10-PCS; principal; 2024-11-07)
PROC: 4A12X4Z Monitoring of Cardiac Electrical Activity, External Approach (ICD-10-PCS; 2024-11-08)
PROC: BW28ZZZ Computerized Tomography (CT Scan) of Head (ICD-10-PCS; 2024-11-08)
PROC: B24BZZZ Ultrasonography of Heart with Aorta (ICD-10-PCS; 2024-11-09)
PROC: BW2GZZZ Computerized Tomography (CT Scan) of Pelvic Region (ICD-10-PCS; 2024-11-10)
PROC: BW40ZZZ Ultrasonography of Abdomen (ICD-10-PCS; 2024-11-16)
DX: A41.89 Other specified sepsis (principal); G92.8 Other toxic encephalopathy; S72.001A Fracture of unspecified part of neck of right femur, initial encounter for closed fracture; I21.A1 Myocardial infarction type 2; R65.21 Severe sepsis with septic shock; J96.00 Acute respiratory failure, unspecified whether with hypoxia or hypercapnia; J44.1 Chronic obstructive pulmonary disease with (acute) exacerbation; E27.3 Drug-induced adrenocortical insufficiency; N17.9 Acute kidney failure, unspecified; I12.9 Hypertensive chronic kidney disease with stage 1 through stage 4 chronic kidney disease, or unspecified chronic kidney disease; N18.9 Chronic kidney disease, unspecified; E03.9 Hypothyroidism, unspecified; E78.5 Hyperlipidemia, unspecified; R55 Syncope and collapse; R56.9 Unspecified convulsions; W19.XXXA Unspecified fall, initial encounter; Y92.230 Patient room in hospital as the place of occurrence of the external cause; Y93.23 Activity, snow (alpine) (downhill) skiing, snowboarding, sledding, tobogganing and snow tubing; T38.0X5A Adverse effect of glucocorticoids and synthetic analogues, initial encounter; D63.1 Anemia in chronic kidney disease; E87.5 Hyperkalemia; I95.89 Other hypotension; B96.89 Other specified bacterial agents as the cause of diseases classified elsewhere